=== PATIENT | male | born 1950 | race Caucasian/White ===

== ENCOUNTER 2018-07-06 04:11 | Emergency (ER) | payer BC, MEDICARE ==
[~2018-07-06] VITALS: Ht 167.6 cm; Wt 83.0 kg
[2018-07-06] MEDS ORDERED: IBUPROFEN 600MG TABLET PO ONE (04:30)
[2018-07-06 04:42] VITALS: BP 141/80
== END 2018-07-06 04:42 | disposition home or self-care (01) ==
LOC: ER 04:11
DX: H92.02 Otalgia, left ear (principal); F17.200 Nicotine dependence, unspecified, uncomplicated
CPT/HCPCS: 99282